=== PATIENT | female | born 1990 | race African-American/Black ===

== ENCOUNTER → 2016-12-23 | Outpatient (CLI) | payer SELFPAY ==
[2016-12-23 16:00] LABS: ABSOLUTE BASOPHILS # (AUTO) 0.1 10^3/uL (0.0-0.2); ABSOLUTE EOSINOPHILS # (AUTO) 0.1 10^3/uL (0.0-0.6); ABSOLUTE LYMPHOCYTES (AUTO) 2.4 10^3/uL (0.5-4.7); ABSOLUTE MONOCYTES (AUTO) 0.5 10^3/uL (0.1-1.4); ABSOLUTE NEUT (AUTO) 3.8 10^3/uL (1.7-8.2); BASOPHILS % (AUTO) 0.9 % (0-2); EOSINOPHILS % (AUTO) 2.1 % (0-6); HEMOGLOBIN 12.4 g/dL (12.0-15.5); HGB HCT DIFFERENCE -0.8; LYMPHOCYTES % (AUTO) 34.2 % (13-45); MEAN CORPUSCULAR HEMOGLOBIN 27.2 pg (27.0-33.4); MEAN CORPUSCULAR HGB CONC 32.8 g/dL (32.0-36.0); MEAN CORPUSCULAR VOLUME 83 fl (80-97); MONOCYTES % (AUTO) 7.2 % (3-13); RED BLOOD COUNT 4.57 10^6/uL (3.72-5.28); RED CELL DISTRIBUTION WIDTH 14.2 % (11.5-14.0); SEGMENTED NEUTROPHILS % (AUTO) 55.6 % (42-78); WHITE BLOOD COUNT 6.9 10^3/uL (4.0-10.5)
[2016-12-23 17:03] LABS: BLOOD UREA NITROGEN 8 mg/dL (7-20); CALCIUM 9.6 mg/dL (8.4-10.2); CHLORIDE 105 mmol/L (98-107); CREATININE RESULT 0.68 mg/dL (0.52-1.25); GLUCOSE 88 mg/dL (75-110); POTASSIUM 4.4 mmol/L (3.6-5.0)
[2016-12-23 17:04] LABS: ALANINE AMINOTRANSFERASE 19 U/L (9-52); ALKALINE PHOSPHATASE 60 U/L (38-126); ANION GAP 13 (5-19); ASPARTATE AMINO TRANSFERASE 17 U/L (14-36); BILIRUBIN,DIRECT 0.3 mg/dL (0.0-0.4); BILIRUBIN,TOTAL 0.5 mg/dL (0.2-1.3); CARBON DIOXIDE 22 mmol/L (22-30); SODIUM 140.3 mmol/L (137-145)
[2016-12-23 17:05] LABS: LIPASE 67.8 U/L (23-300)
== END ==
LOC: OD 10:19
PROVIDERS: ATTEND Physician Assistant
DX: R10.84 Generalized abdominal pain (principal)
CPT/HCPCS: 36415; 74022; 80053; 83690; 85025

== ENCOUNTER → 2017-01-06 | Outpatient (CLI) | payer BC ==
--- NOTE | 2017-01-06 09:20 | WOMENS IMAGING REPORT ---
EXAM DESCRIPTION: U/S ABDOMEN LIMITED COMPLETED DATE/TIME: 01/06/2017 8:59 am REASON FOR STUDY: R10.13, R11.0 R10.13 EPIGASTRIC PAIN R11.0 NAUSEA COMPARISON: Abdominal ultrasound 06/23/2011 Abdominal films 12/12/2016, 09/04/2015 TECHNIQUE: Dynamic and static grayscale images acquired of the abdomen and recorded on PACS. Additio nal selected color Doppler and spectral images recorded. LIMITATIONS: Body habitus place. FINDINGS: PANCREAS: Midline pancreas unremarkable LIVER: Normal size liver with mild increased echogenicity from fatty infiltration. No focal masses. LIVER VASCULATURE: Normal directional flow of the main portal vein and hepatic veins. GALLBLADDER: No stones. Normal wall thickness. No pericholecystic fluid. ULTRASOUND-DETECTED RAMIREZ'S SIGN: Negative. INTRAHEPATIC DUCTS AND COMMON DUCT: CBD and intrahepatic ducts normal caliber. No filling defects. INFERIOR VENA CAVA: Not well seen AORTA: Not well seen RIGHT KIDNEY: Normal size. Normal echogenicity. No solid or suspicious masses. No hydronephrosis. No calcifications. PERITONEAL AND RIGHT PLEURAL SPACE: No ascites or effusions. OTHER: No other significant findings. IMPRESSION: No gallstones gallbladder wall thickening or pericholecystic fluid. Fatty infiltration of the liver TECHNICAL DOCUMENTATION: JOB ID: [id number]- All Rights Reserved
== END ==
LOC: WI 08:01
PROVIDERS: ATTEND Internal Medicine Gastroenterology
DX: R10.13 Epigastric pain (principal); R11.0 Nausea; K76.0 Fatty (change of) liver, not elsewhere classified
CPT/HCPCS: 76705

== ENCOUNTER 2017-03-14 16:50 | Emergency (ER) | payer BC ==
[2017-03-14] MEDS ORDERED: KETOROLAC TROMETHAMINE 10 MG TABLET PO ONE (17:28)
--- NOTE | 2017-03-14 17:29 | ER Document Report ---
ED General - General Chief Complaint: Chest Pain Stated Complaint: CHEST PAIN Time Seen by Provider: 03/14/17 17:28 Mode of Arrival: Ambulatory Information source: Patient Notes: 26-year-old female presents with complaints of chest wall pain that started today. Patient notes it hurts when she touches her chest. Patient denies any shortness breath difficulty breathing denies any fevers or chills nausea vomiting or diarrhea. Patient notesalot of stress recently as well TRAVEL OUTSIDE OF THE [place] IN LAST 30 DAYS: No - HPI Onset: Last week Onset/Duration: Sudden, Persistent Quality of pain: Sharp Severity: Mild Pain Level: 1 Associated symptoms: Body/muscle aches, Chest pain Exacerbated by: Denies Relieved by: Denies Similar symptoms previously: Yes - stress related Recently seen / treated by doctor: Yes - Related Data Allergies/Adverse Reactions: diphenhydramine HCl [From Benadryl] Allergy (Severe, Verified 03/14/17 16:53) Tachycardia calcium carbonate [From Tums] Allergy (Verified 03/14/17 16:53) dexamethasone [From Decadron] Allergy (Verified 03/14/17 16:53) dexamethasone sod phosphate [From Decadron] Allergy (Verified 03/14/17 16:53) Past Medical History - Social History Smoking Status: Never Smoker Cigarette use (# per day): No Chew tobacco use (# tins/day): No Smoking Education Provided: No Family History: None, Reviewed & Not Pertinent - Past Medical History Cardiac Medical History: Reports: Hx Hypertension Renal/ Medical History: Denies: Hx Peritoneal Dialysis GI Medical History: Reports: Hx Gastroesophageal Reflux Disease Past Surgical History: Reports: Hx Tonsillectomy - Immunizations Hx Diphtheria, Pertussis, Tetanus Vaccination: Yes - 2009 Review of Systems - Review of Systems Notes: REVIEW OF SYSTEMS: CONSTITUTIONAL : Denies fever, chills, or sweats. Denies recent illness. EENT: Denies eye, ear, throat, or mouth pain or symptoms. Denies nasal or sinus congestion or discharge. Denies throat, tongue, or mouth swelling or difficulty swallowing. CARDIOVASCULAR: Denies chest pain. Denies palpitations or racing or irregular heart beat. Denies ankle edema. RESPIRATORY: Denies cough, cold, or chest congestion. Denies shortness of breath, difficulty breathing, or wheezing. GASTROINTESTINAL: Denies abdominal pain or distention. Denies nausea, vomiting , or diarrhea. Denies blood in vomitus, stools, or per rectum. Denies black, tarry stools. Denies constipation. GENITOURINARY: Denies difficulty urinating, painful urination, burning, frequency, blood in urine, or discharge. FEMALE GENITOURINARY: Denies vaginal bleeding, heavy or abnormal periods, irregular periods. Denies vaginal discharge or odor. MUSCULOSKELETAL: Admits to chest wall pain SKIN: Denies rash, lesions or sores. HEMATOLOGIC : Denies easy bruising or bleeding. LYMPHATIC: Denies swollen, enlarged glands. NEUROLOGICAL: Denies confusion or altered mental status. Denies passing out or loss of consciousness. Denies dizziness or lightheadedness. Denies headache. Denies weakness or paralysis or loss of use of either side. Denies problems with gait or speech. Denies sensory loss, numbness, or tingling. Denies seizures. PSYCHIATRIC: Admits to stress ALL OTHER SYSTEMS REVIEWED AND NEGATIVE. PHYSICAL EXAMINATION: GENERAL: Well-appearing, well-nourished and in no acute distress. HEAD: Atraumatic, normocephalic. EYES: Pupils equal round and reactive to light, extraocular movements intact, conjunctiva are normal. ENT: Nares patent, oropharynx clear without exudates. Moist mucous membranes. NECK: Normal range of motion, supple without lymphadenopathy LUNGS: Breath sounds clear to auscultation bilaterally and equal. No wheezes rales or rhonchi. HEART: Regular rate and rhythm without murmurs ABDOMEN: Soft, nontender, nondistended abdomen. No guarding, no rebound. No masses appreciated. Female : deferred Musculoskeletal: Normal range of motion, no pitting or edema. No cyanosis. Chest pain completely reproducible on palpation NEUROLOGICAL: Cranial nerves grossly intact. Normal speech, normal gait. Normal sensory, motor exams PSYCH: Normal mood, normal affect. SKIN: Warm, Dry, normal turgor, no rashes or lesions noted. Dictation was performed using [employer] voice recognition software Physical Exam - Vital signs Vitals: Temp Pulse Resp BP Pulse Ox 98.0 F 85 18 115/84 100 03/14/17 17:49 03/14/17 17:49 03/14/17 17:49 03/14/17 17:49 03/14/17 17:49 Course - Re-evaluation Re-evalutation: 03/14/17 20:45 Chest pain was exactly reproducible on palpation, patient otherwise is in no distress, EKG was normal. Patient will be discharged home with anti- inflammatories. Patient also admits to a lot of stress in her life which may attribute to her pain After performing a Medical Screening Examination, I estimate there is LOW risk for RUPTURED ESOPHAGUS, PNEUMOTHORAX, PULMONARY EMBOLISM, ACUTE CORONARY SYNDROME, OR THORACIC AORTIC DISSECTION, thus I consider the discharge disposition reasonable. I have reevaluated this patient multiple times and no significant life threatening changes are noted. The patient and I have discussed the diagnosis and risks, and we agree with discharging home with close follow-up. We also discussed returning to the Emergency Department immediately if new or worsening symptoms occur. We have discussed the symptoms which are most concerning (e.g., bloody sputum, worsening pain or shortness of breath) that necessitate immediate return. - Vital Signs Vital signs: Temp Pulse Resp BP Pulse Ox 98.0 F 85 18 115/84 100 03/14/17 17:49 03/14/17 17:49 03/14/17 17:49 03/14/17 17:49 03/14/17 17:49 - EKG Interpretation by Me EKG shows normal: Sinus rhythm, [place], Intervals, QRS Complexes - No acute abnormality Discharge - Discharge Clinical Impression: Chest wall pain, Stress Condition: Stable Disposition: HOME, SELF-CARE Instructions: Chest Wall Pain ([facility]) Additional Instructions: Follow up with your physician tomorrow for further care or return to the ED IMMEDIATELY if symptoms worsen or new concerns occur. If you cannot afford to follow up with your primary care physician a list of low cost clinics have been provided at the end of your discharge papers as well. Prescriptions: Ketorolac Tromethamine [Toradol 10 mg Tablet] 10 mg PO Q8 #30 tablet Referrals: LALO HORTON MD [Primary Care Provider] - Follow up as needed
[2017-03-14 17:50] VITALS: BP 115/84
--- NOTE | 2017-03-14 17:50 | EKG REPORT ---
SEVERITY:- OTHERWISE NORMAL ECG - SINUS TACHYCARDIA : Confirmed by: Tone Estrada 14-Mar-2017 17:50:18
== END 2017-03-14 17:50 | disposition home or self-care (01) ==
LOC: ER 16:50
DX: R07.89 Other chest pain (principal); F43.9 Reaction to severe stress, unspecified
CPT/HCPCS: 93005; 99285; 93010; J3490

== ENCOUNTER 2019-06-21 14:28 | Emergency (ER) | payer BC ==
[2019-06-21] MEDS ORDERED: ONDANSETRON HCL INJ/PF 4 MG/2 ML SDV IV ONE ×2 (14:57→17:36)
[2019-06-21] MEDS ORDERED: NORMAL SALINE 1000 ML 1,000 ML IV ONE (14:57)
[2019-06-21] MEDS ORDERED: LIDOCAINE 2% VISCOUS SOLN 20 ML UDCUP PO ONE ×2 (15:00→18:36)
[2019-06-21] MEDS ORDERED: METOCLOPRAMIDE HCL ORAL SOLN 10 MG/10 ML UDCUP PO ONE (15:00)
[2019-06-21] MEDS ORDERED: MAG HYDROX/AL HYDROX/SIMETH SUSP 30 ML UDCUP PO ONE ×2 (15:00→18:36)
--- NOTE | 2019-06-21 15:02 | ER Document Report ---
ED Medical Screen (RME) - General Chief Complaint: Abdominal Pain Stated Complaint: ABDOMINAL PAIN Time Seen by Provider: 06/21/19 14:53 Primary Care Provider: LALO HORTON MD [Primary Care Provider] - Follow up as needed Notes: Patient is a 29-year-old female with a history of acid reflux who presents the emergency department with a chief complaint of epigastric pain. Patient reports that she was sent here from [facility] urgent care to be evaluated for her gallbladder. Patient reports for the past 2 days she has had epigastric pain that sometimes radiates into the right upper quadrant and near her umbilicus. Patient reports yesterday she had multiple bouts of diarrhea but that has since improved. Patient reports nausea and one episode of vomiting. Patient reports her pain is worse when she attempts to eat. Patient reports chills but has not checked her temperature at home. Patient denies abdominal surgeries. Patient reports last menstrual cycle June 11. TRAVEL OUTSIDE OF THE [place] IN LAST 30 DAYS: No - Related Data Allergies/Adverse Reactions: diphenhydramine HCl [From Benadryl] Allergy (Severe, Verified 03/14/17 16:53) Tachycardia calcium carbonate [From Tums] Allergy (Verified 03/14/17 16:53) dexamethasone [From Decadron] Allergy (Verified 03/14/17 16:53) dexamethasone sod phosphate [From Decadron] Allergy (Verified 03/14/17 16:53) Past Medical History - Social History Frequency of alcohol use: None Drug Abuse: None - Past Medical History Cardiac Medical History: Reports: Hx Hypertension Renal/ Medical History: Denies: Hx Peritoneal Dialysis GI Medical History: Reports: Hx Gastroesophageal Reflux Disease Past Surgical History: Reports: Hx Tonsillectomy - Immunizations Hx Diphtheria, Pertussis, Tetanus Vaccination: Yes - 2009 Physical Exam - Vital signs Vitals: Temp Pulse Resp BP Pulse Ox 98.4 F 87 18 143/83 H 100 06/21/19 14:45 06/21/19 14:45 06/21/19 14:45 06/21/19 14:45 06/21/19 14:45 - Abdominal Inspection: Morbidly Obese Distension: No distension Bowel sounds: Normal Tenderness: Tender - epigatric tenderness Organomegaly: No organomegaly Course - Re-evaluation Re-evalutation: 06/21/19 15:02 I have greeted and performed a rapid initial assessment of this patient. A comprehensive ED assessment and evaluation of the patient, analysis of test results and completion of the medical decision making process will be conducted by additional ED providers. - Vital Signs Vital signs: Temp Pulse Resp BP Pulse Ox 98.4 F 87 18 143/83 H 100 06/21/19 14:45 06/21/19 14:45 06/21/19 14:45 06/21/19 14:45 06/21/19 14:45 Doctor's Discharge - Discharge Referrals: LALO HORTON MD [Primary Care Provider] - Follow up as needed
[2019-06-21 16:35] LABS: ABSOLUTE LYMPHOCYTES (AUTO) 1.6 10^3/uL (0.5-4.7); ABSOLUTE MONOCYTES (AUTO) 0.4 10^3/uL (0.1-1.4); ABSOLUTE NEUT (AUTO) 2.9 10^3/uL (1.7-8.2); BASOPHILS % (AUTO) 0.6 % (0-2); EOSINOPHILS % (AUTO) 0.4 % (0-6); HEMOGLOBIN 12.8 g/dL (12.0-15.5); LYMPHOCYTES % (AUTO) 32.3 % (13-45); MEAN CORPUSCULAR HEMOGLOBIN 27.7 pg (27.0-33.4); MEAN CORPUSCULAR HGB CONC 33.6 g/dL (32.0-36.0); MEAN CORPUSCULAR VOLUME 82 fl (80-97); MONOCYTES % (AUTO) 7.2 % (3-13); PLATELET COUNT 386 10^3/uL (150-450); RED BLOOD COUNT 4.61 10^6/uL (3.72-5.28); RED CELL DISTRIBUTION WIDTH 13.9 % (11.5-14.0); SEGMENTED NEUTROPHILS % (AUTO) 59.5 % (42-78); TOTAL CELLS COUNTED % (AUTO) 100 %; WHITE BLOOD COUNT 4.9 10^3/uL (4.0-10.5)
[2019-06-21 16:57] LABS: ALBUMIN 4.4 g/dL (3.5-5.0); ALKALINE PHOSPHATASE 63 U/L (38-126); ANION GAP 13 (5-19); ASPARTATE AMINO TRANSFERASE 21 U/L (14-36); BILIRUBIN,DIRECT 0.1 mg/dL (0.0-0.4); BILIRUBIN,TOTAL 0.5 mg/dL (0.2-1.3); BLOOD UREA NITROGEN 7 mg/dL (7-20); CALCIUM 9.4 mg/dL (8.4-10.2); CARBON DIOXIDE 23 mmol/L (22-30); CHLORIDE 102 mmol/L (98-107); GLUCOSE 77 mg/dL (75-110); TOTAL PROTEIN 7.6 g/dL (6.3-8.2)
[2019-06-21 18:22] LABS: APPEARANCE,URINE CLOUDY; BILIRUBIN,URINE NEGATIVE (NEGATIVE); GLUCOSE, URINE NEGATIVE (NEGATIVE); KETONES,URINE 20 mg/dL (NEGATIVE); LEUKOCYTE ESTERASE,URINE NEGATIVE (NEGATIVE); NITRITE,URINE NEGATIVE (NEGATIVE); PROTEIN,URINE NEGATIVE (NEGATIVE); URINE SPECIFIC GRAVITY 1.025
[2019-06-21 18:25] LABS: COLOR,URINE DARK YELLOW
[2019-06-21] MEDS ORDERED: DEXTROSE 5%-LACTATED RINGERS 1,000 ML IV ONE (18:36)
--- NOTE | 2019-06-21 18:44 | RADIOLOGY REPORT (SQ) ---
EXAM DESCRIPTION: U/S ABDOMEN LIMITED W/O DOP COMPLETED DATE/TIME: 06/21/2019 6:31 pm REASON FOR STUDY: epigastric pain/radiates into ruq COMPARISON: None. TECHNIQUE: Dynamic and static grayscale images acquired of the abdomen and recorded on PACS. Additio nal selected color Doppler and spectral images recorded. LIMITATIONS: Bowel gas. FINDINGS: PANCREAS: Not seen. LIVER: Increased echogenicity. LIVER VASCULATURE: Normal directional flow of the main portal vein and hepatic veins. GALLBLADDER: No stones. Normal wall thickness. No pericholecystic fluid. ULTRASOUND-DETECTED RAMIREZ'S SIGN: Negative. INTRAHEPATIC DUCTS AND COMMON DUCT: CBD and intrahepatic ducts normal caliber. No filling defects. INFERIOR VENA CAVA: Normal flow. AORTA: No aneurysm. The mid abdominal aorta is not well seen. RIGHT KIDNEY: Normal size, 10.8 cm. Normal echogenicity. No solid or suspicious masses. No hydroneph rosis. No calcifications. PERITONEAL AND RIGHT PLEURAL SPACE: No ascites or effusions. OTHER: No other significant findings. IMPRESSION: Fatty infiltration of the liver. TECHNICAL DOCUMENTATION: JOB ID: [id number] [employer]- All Rights Reserved Reading location - IP/workstation name: [email or web address]
--- NOTE | 2019-06-21 19:34 | ER Document Report ---
Entered by CECILIA CERVANTES SCRIBE 06/21/19 1723 Acting as scribe for:KAR SHI MD ED General - General Chief Complaint: Abdominal Pain Stated Complaint: ABDOMINAL PAIN Time Seen by Provider: 06/21/19 14:53 Primary Care Provider: LALO HORTON MD [Primary Care Provider] - Follow up as needed Notes: Patient is a 29 year old female presenting to the emergency department today complaining of upper abdominal pain. Patient states that this pain began x2 days ago and she has been having nausea, vomiting, diarrhea, and flank pain as well. She states that she vomited once and states that it was a yellow/pink color. TRAVEL OUTSIDE OF THE [place] IN LAST 30 DAYS: No - Related Data Allergies/Adverse Reactions: diphenhydramine HCl [From Benadryl] Allergy (Severe, Verified 03/14/17 16:53) Tachycardia calcium carbonate [From Tums] Allergy (Verified 03/14/17 16:53) dexamethasone [From Decadron] Allergy (Verified 03/14/17 16:53) dexamethasone sod phosphate [From Decadron] Allergy (Verified 03/14/17 16:53) Past Medical History - General Information source: Patient - Social History Smoking Status: Never Smoker Cigarette use (# per day): No Chew tobacco use (# tins/day): No Frequency of alcohol use: Rare Drug Abuse: None Occupation: [employer] Family History: None, Reviewed & Not Pertinent Patient has suicidal ideation: No Patient has homicidal ideation: No Renal/ Medical History: Denies: Hx Peritoneal Dialysis GI Medical History: Reports: Hx Gastroesophageal Reflux Disease Past Surgical History: Reports: Hx Tonsillectomy - Immunizations Hx Diphtheria, Pertussis, Tetanus Vaccination: Yes - 2009 Review of Systems - Review of Systems Constitutional: No symptoms reported EENT: No symptoms reported Cardiovascular: No symptoms reported Respiratory: No symptoms reported Gastrointestinal: See HPI, Abdominal pain, Diarrhea, Nausea, Vomiting - once yesterday Genitourinary: See HPI, Flank pain Female Genitourinary: No symptoms reported Musculoskeletal: No symptoms reported Skin: No symptoms reported Hematologic/Lymphatic: No symptoms reported Neurological/Psychological: No symptoms reported -: Yes All other systems reviewed and negative Physical Exam - Vital signs Vitals: Temp Pulse Resp BP Pulse Ox 98.4 F 87 18 143/83 H 100 06/21/19 14:45 06/21/19 14:45 06/21/19 14:45 06/21/19 14:45 06/21/19 14:45 - Notes Notes: Physical Exam: General: Alert, obese. HEENT: Normocephalic. Atraumatic. PERRL. Extraocular movements intact. Oropharynx clear. Neck: Supple. Non-tender. Respiratory: No respiratory distress. Clear and equal breath sounds bilaterally. Cardiovascular: Regular rate and rhythm. Abdominal: Epigastric tenderness to palpation. Right upper quadrant tenderness to palpation. No distension. Normal Bowel Sounds. Back: No CVA percussion tenderness. No gross abnormalities. Extremities: Moves all four extremities. Upper extremities: Normal inspection. Normal ROM. Lower extremities: Normal inspection. No edema. Normal ROM. Neurological: Normal cognition. AAOx4. Normal speech. Psychological: Normal affect. Normal Mood. Skin: Warm. Dry. Normal color. Course - Re-evaluation Re-evalutation: 06/21/19 18:35 Patient is epigastric abdominal tenderness which did not improve with the first GI cocktail. She did report several episodes of diarrhea yesterday and one episode of vomiting a large volume of liquid. Her lab work is unremarkable. Gallbladder ultrasound is unremarkable. 06/21/19 19:39 Patient feels much better after the second GI cocktail. Her pain is gone now and there is no tenderness to palpate. Nauseousness is also gone after Zofran. I suspect the patient had a viral gastroenteritis with all the diarrhea she had yesterday and the large volume vomiting caused her to have GERD type symptoms. - Vital Signs Vital signs: Temp Pulse Resp BP Pulse Ox 98.4 F 87 18 143/83 H 100 06/21/19 14:45 06/21/19 14:45 06/21/19 14:45 06/21/19 14:45 06/21/19 14:45 - Laboratory Result Diagrams: 06/21/19 16:04 06/21/19 16:04 Laboratory results interpreted by me: 06/21/19 17:48 Urine Ketones 20 H Urine Urobilinogen 4.0 H - Diagnostic Test Radiology reviewed: Image reviewed - Gallbladder ultrasound is unremarkable. Discharge - Discharge Clinical Impression: Gastroenteritis Abdominal pain Qualifiers: Abdominal location: epigastric Qualified Code(s): R10.13 - Epigastric pain Condition: Stable Disposition: HOME, SELF-CARE Additional Instructions: Gastroenteritis You most likely have gastroenteritis. This is an irritation of the stomach and intestinal tract. It's usually caused by a virus, but can also be caused by bacteria, toxins that cause food poisoning, or excessive alcohol intake. Symptoms may include fever, painful abdominal cramps, nausea, vomiting, and di arrhea. Start with small amounts (two to six ounces) of clear liquids (soft drinks, herb teas, broth, etc). Try to take fluids frequently even if you are vomiting, to prevent dehydration. When liquids are being consumed successfully, advance to small amounts of bland food (mashed potato, toast) for 6 - 12 hours. Gastroenteritis rarely requires medication. It goes away by itself. Use go od handwashing so you don't spread germs. Wash underwear in very hot water. If symptoms are severe, talk to the doctor. Call your physician if blood appears in your vomitus or stool, if vomiting lasts longer than 24 hours, if the abdominal pain worsens or becomes localized to one area, or if you develop high fever. Take medication as dispensed for nauseousness if needed. Try taking Imodium right ear if the diarrhea continues to be a problem. Drink cool clear liquids today. Get plenty of rest and sleep. Follow-up with your primary care provider if not improving. RETURN TO THE EMERGENCY ROOM IF ANY NEW OR WORSENING SYMPTOMS. Forms: Return to Work Referrals: LALO HORTON MD [Primary Care Provider] - Follow up as needed Scribe Attestation: 06/21/19 18:35 I personally performed the services described in the documentation, reviewed and edited the documentation which was dictated to the scribe in my presence, and it accurately records my words and actions. I personally performed the services described in the documentation, reviewed and edited the documentation which was dictated to the scribe in my presence, and it accurately records my words and actions.
[2019-06-21] MEDS ORDERED: ONDANSETRON ODT 4 MG TAB (6 TAB/ER DISP) PO PRN (19:41)
[2019-06-21 20:13] VITALS: BP 142/87
== END 2019-06-21 20:13 | disposition home or self-care (01) ==
LOC: ER 14:28
DX: K52.9 Noninfective gastroenteritis and colitis, unspecified (principal); R10.13 Epigastric pain; R10.816 Epigastric abdominal tenderness; R10.811 Right upper quadrant abdominal tenderness; R11.2 Nausea with vomiting, unspecified; R10.9 Unspecified abdominal pain; Z88.8 Allergy status to other drugs, medicaments and biological substances; Z87.19 Personal history of other diseases of the digestive system
CPT/HCPCS: 36415; 83690; 84703; 85025; 80053; 81001; 76705; J3490; J2405; J7121; J7030

== ENCOUNTER 2019-10-13 13:57 | Emergency (ER) | payer BC ==
[2019-10-13] MEDS ORDERED: ASPIRIN 81 MG TABLET, CHEWABLE PO ONE (14:22)
--- NOTE | 2019-10-13 14:23 | ER Document Report ---
ED Medical Screen (RME) - General Stated Complaint: CHEST PAIN Time Seen by Provider: 10/13/19 14:19 Primary Care Provider: LALO HORTON MD [Primary Care Provider] - Follow up as needed Notes: HPI: 29-year-old obese female presenting to the emergency department for evaluation of 5 days of a constant left upper chest pressure that does not change with palpation position or movement. Reports mild shortness of breath and nausea with this. Discomfort seems to radiate into the shoulder and upper arm. Patient states she has a history of gastritis but did take Pepcid AC without change or resolution of the discomfort. Patient does occasionally smoke. No history of hypertension per the patient I have greeted and performed a rapid initial assessment of this patient. A comprehensive ED assessment and evaluation of the patient, analysis of test results and completion of the medical decision making process will be conducted by additional ED providers PHYSICAL EXAMINATION: GENERAL: Well-appearing, well-nourished and in mild acute distress. HEAD: Atraumatic, normocephalic. EYES: sclera anicteric, conjunctiva are normal. ENT: Moist mucous membranes. NECK: Normal range of motion LUNGS: Normal work of breathing, clear to auscultation. No reproducible pain on palpation HEART: 2+ radial pulses bilaterally, regular rate and rhythm ABD: limited by positioning for exam in triage. EXTREMITIES: no pitting or edema. No cyanosis. NEUROLOGICAL: No focal neurological deficits. Moves all extremities spontaneously and on command. PSYCH: Normal mood, normal affect. SKIN: Warm, Dry, normal turgor, no rashes or lesions noted. TRAVEL OUTSIDE OF THE [place] IN LAST 30 DAYS: No - Related Data Allergies/Adverse Reactions: diphenhydramine HCl [From Benadryl] Allergy (Severe, Verified 10/13/19 14:18) Tachycardia calcium carbonate [From Tums] Allergy (Verified 10/13/19 14:18) dexamethasone [From Decadron] Allergy (Verified 10/13/19 14:18) dexamethasone sod phosphate [From Decadron] Allergy (Verified 10/13/19 14:18) Past Medical History - Past Medical History Cardiac Medical History: Reports: Hx Hypertension Renal/ Medical History: Denies: Hx Peritoneal Dialysis GI Medical History: Reports: Hx Gastroesophageal Reflux Disease Past Surgical History: Reports: Hx Tonsillectomy - Immunizations Hx Diphtheria, Pertussis, Tetanus Vaccination: Yes - 2009 Physical Exam - Vital signs Vitals: Temp Pulse Resp BP Pulse Ox 98.1 F 86 20 151/100 H 100 10/13/19 14:14 10/13/19 14:14 10/13/19 14:14 10/13/19 14:14 10/13/19 14:14 Course - Vital Signs Vital signs: Temp Pulse Resp BP Pulse Ox 98.1 F 86 20 151/100 H 100 10/13/19 14:14 10/13/19 14:14 10/13/19 14:14 10/13/19 14:14 10/13/19 14:14 Doctor's Discharge - Discharge Referrals: LALO HORTON MD [Primary Care Provider] - Follow up as needed
--- NOTE | 2019-10-13 14:41 | EKG REPORT ---
SEVERITY:- NORMAL ECG - SINUS RHYTHM : Confirmed by: Lanre Dove MD 13-Oct-2019 14:41:18
[2019-10-13 14:55] LABS: ABSOLUTE BASOPHILS # (AUTO) 0.1 10^3/uL (0.0-0.2); ABSOLUTE EOSINOPHILS # (AUTO) 0.1 10^3/uL (0.0-0.6); ABSOLUTE LYMPHOCYTES (AUTO) 2.2 10^3/uL (0.5-4.7); ABSOLUTE MONOCYTES (AUTO) 0.5 10^3/uL (0.1-1.4); ABSOLUTE NEUT (AUTO) 4.1 10^3/uL (1.7-8.2); BASOPHILS % (AUTO) 1.1 % (0-2); EOSINOPHILS % (AUTO) 1.7 % (0-6); HEMOGLOBIN 12.8 g/dL (12.0-15.5); LYMPHOCYTES % (AUTO) 31.5 % (13-45); MEAN CORPUSCULAR HEMOGLOBIN 27.8 pg (27.0-33.4); MEAN CORPUSCULAR HGB CONC 33.7 g/dL (32.0-36.0); MEAN CORPUSCULAR VOLUME 82 fl (80-97); MONOCYTES % (AUTO) 6.7 % (3-13); PLATELET COUNT 438 10^3/uL (150-450); RED BLOOD COUNT 4.61 10^6/uL (3.72-5.28); RED CELL DISTRIBUTION WIDTH 14.2 % (11.5-14.0); TOTAL CELLS COUNTED % (AUTO) 100 %; WHITE BLOOD COUNT 6.9 10^3/uL (4.0-10.5)
[2019-10-13 15:10] LABS: INTERNATIONAL RATION (INR) 0.96; PROTHROMBIN TIME 12.8 SEC (11.4-15.4)
[2019-10-13 15:12] LABS: ALBUMIN 4.5 g/dL (3.5-5.0); ALKALINE PHOSPHATASE 53 U/L (38-126); ANION GAP 7 (5-19); ASPARTATE AMINO TRANSFERASE 19 U/L (14-36); BILIRUBIN,TOTAL 0.4 mg/dL (0.2-1.3); BLOOD UREA NITROGEN 11 mg/dL (7-20); CALCIUM 9.7 mg/dL (8.4-10.2); CARBON DIOXIDE 25 mmol/L (22-30); CHLORIDE 107 mmol/L (98-107); GLUCOSE 112 mg/dL (75-110); POTASSIUM 4.4 mmol/L (3.6-5.0); TOTAL PROTEIN 7.9 g/dL (6.3-8.2)
--- NOTE | 2019-10-13 15:17 | RADIOLOGY REPORT (SQ) ---
EXAM DESCRIPTION: CHEST 2 VIEWS COMPLETED DATE/TIME: 10/13/2019 2:54 pm REASON FOR STUDY: chest pain COMPARISON: None. EXAM PARAMETERS: NUMBER OF VIEWS: two views TECHNIQUE: Digital Frontal and Lateral radiographic views of the chest acquired. RADIATION DOSE: NA LIMITATIONS: none FINDINGS: LUNGS AND PLEURA: No opacities, masses or pneumothorax. No pleural effusion. MEDIASTINUM AND HILAR STRUCTURES: No masses or contour abnormalities. HEART AND VASCULAR STRUCTURES: Heart normal size. No evidence for failure. BONES: No acute findings. HARDWARE: None in the chest. OTHER: No other significant finding. IMPRESSION: NO ACUTE RADIOGRAPHIC FINDING IN THE CHEST. TECHNICAL DOCUMENTATION: JOB ID: [id number] 2010 [employer]- All Rights Reserved Reading location - IP/workstation name: [email or web address]
--- NOTE | 2019-10-13 17:05 | ER Document Report ---
ED General - General Chief Complaint: Chest Pain Stated Complaint: CHEST PAIN Time Seen by Provider: 10/13/19 14:19 Primary Care Provider: LALO HORTON MD [Primary Care Provider] - Follow up as needed TRAVEL OUTSIDE OF THE [place] IN LAST 30 DAYS: No - HPI Notes: Ms. Balderas is a 29-year-old female with a chief complaint of persistent nonradiating, nonpleuritic pain left upper anterior chest area over the past 1 week. She uses Tylenol with intermittent relief but pain seems to come back. She also notes she has had some occasional palpitations. Additional history is obtained from patient's mother who accompanies her. It is reported the patient has been very stressed and not sleeping well related to recent of a relative after a lengthy illness with terminal cancer. Patient was involved as a caregiver. Denies any unaccustomed physical activity. Has occasional reflux and takes Pepcid AC for this. She takes some allergy medications as needed. She is reall y not on any other long-term medications. Patient is not diabetic. She is somewhat overweight. She has no history of diabetes, hypertension, hyperlipidemia, CAD or thromboembolic disease. She is a non-smoker. She is not on any hormonal medication. Last menses 2 weeks ago described as normal. HEART Score: HISTORY 0 ECG 0 AGE 0 RISK FACTORS 1 TROPONIN 0 TOTAL: 1 If HEART score is = 3 AND both tronponin measurments are normal, the 30 day risk of a major adverse cardiac event (all-cause mortality, myocardia infarction or need for coronary revscularization) is < 1% (Sensitivity 100%, NPV 100%). - Related Data Allergies/Adverse Reactions: diphenhydramine HCl [From Benadryl] Allergy (Severe, Verified 10/13/19 14:18) Tachycardia calcium carbonate [From Tums] Allergy (Verified 10/13/19 14:18) dexamethasone [From Decadron] Allergy (Verified 10/13/19 14:18) dexamethasone sod phosphate [From Decadron] Allergy (Verified 10/13/19 14:18) Past Medical History - General Information source: Patient, Relative - Social History Smoking Status: Never Smoker Chew tobacco use (# tins/day): No Frequency of alcohol use: None Drug Abuse: None Family History: None, Reviewed & Not Pertinent Patient has suicidal ideation: No Patient has homicidal ideation: No Renal/ Medical History: Denies: Hx Peritoneal Dialysis GI Medical History: Reports: Hx Gastroesophageal Reflux Disease Past Surgical History: Reports: Hx Tonsillectomy - Immunizations Hx Diphtheria, Pertussis, Tetanus Vaccination: Yes - 2009 Physical Exam - Vital signs Vitals: Temp Pulse Resp BP Pulse Ox 98.1 F 86 20 151/100 H 100 10/13/19 14:14 10/13/19 14:14 10/13/19 14:14 10/13/19 14:14 10/13/19 14:14 - Notes Notes: GENERAL: Somewhat obese female appearing approximately stated age who looks anxious. SKIN: Good turgor no rashes. HEAD: Normocephalic atraumatic. EYES: PERRLA. EOMI. Conjunctivae and sclerae clear. EARS: CANALS AND TMS CLEAR. NOSE: CLEAR. MOUTH: Moist mucosa. Good dentition. No stridor or edema. No drooling. NECK: Supple. No masses or thyromegaly. No adenopathy. Carotids 2+ without bruits. No JVD. BACK: Symmetrical without tenderness. CHEST: Patient is exquisitely tender left upper anterior chest area with EXACT reproduction of her pain. Respirations unlabored. Breath sounds clear and sym metrical. HEART: Regular rhythm. No murmur gallop or rub. ABDOMEN: Obese. Soft nontender without masses, organomegaly or rebound. Bowel sounds normally active. No bruits. GENITALIA: Deferred. EXTREMITIES: No edema. No calf tenderness. Cap refill less than 1.5 seconds. Dorsalis pedis and posterior tibial pulses 3+ and symmetrical. NEUROLOGICAL: GCS 15. Alert and oriented x3. Normal gait. Fluent speech. Cranial nerves II through XII intact. Sensorimotor and cerebellar normal. Nor mal tone. PSYCHIATRIC: Anxious affect. Course - Re-evaluation Re-evalutation: 10/13/19 17:07 This young lady has a heart score of 1. She is under substantial emotional stress. Her pain seems to be completely reproducible with palpation of the area of her discomfort. Her chest x-ray troponin and EKG are normal. I talked with patient and her mother at length Er at length to provide general reassurance. Because of her history of GERD I am reluctant to put her on an NSAID. I am going to suggest she continue Tylenol and I will also prescribe some Flexeril to take at bedtime. She will follow-up with her primary care provider Dr. Horton this week and return here as needed for any new or worsening symptoms. - Vital Signs Vital signs: Temp Pulse Resp BP Pulse Ox 98.1 F 86 17 122/86 H 100 10/13/19 14:14 10/13/19 14:14 10/13/19 16:02 10/13/19 16:02 10/13/19 16:02 - Laboratory Result Diagrams: 10/13/19 14:45 10/13/19 14:45 Laboratory results interpreted by me: 10/13/19 10/13/19 14:45 14:45 RDW 14.2 H Glucose 112 H - Diagnostic Test Radiology reviewed: Reports reviewed - Normal chest x-ray per radiologist - EKG Interpretation by Me Additional EKG results interpreted by me: 10/13/19 17:07 Twelve-lead EKG from 1403 hrs. today is reviewed contemporaneously by me demonstrating normal sinus rhythm with rate of 82 and a normal QRS axis of 29 degrees. Intervals are normal. There are no acute ST/T wave changes present. Discharge - Discharge Clinical Impression: Chest wall pain Condition: Stable Disposition: ADMITTED INPATIENT Instructions: Chest Wall Pain ([facility]) Prescriptions: Cyclobenzaprine HCl [Flexeril 10 mg Tablet] 10 mg PO QHS PRN #15 tablet PRN Reason: Referrals: LALO HORTON MD [Primary Care Provider] - Follow up as needed
[2019-10-13 17:14] VITALS: BP 131/77
== END 2019-10-13 17:14 | disposition home or self-care (01) ==
LOC: ER 13:57
DX: R07.89 Other chest pain (principal); I10 Essential (primary) hypertension
CPT/HCPCS: 36415; 71046; 80053; 84484; 85025; 85610; 93005; 93010; 99284

== ENCOUNTER 2019-11-10 15:27 | Emergency (ER) | payer BC ==
[2019-11-10] MEDS ORDERED: IBUPROFEN 800 MG TABLET PO ONE (15:49)
--- NOTE | 2019-11-10 15:50 | ER Document Report ---
ED Medical Screen (RME) - General Chief Complaint: Abdominal Pain Stated Complaint: LOWER ABDOMINAL PAIN Time Seen by Provider: 11/10/19 15:44 Primary Care Provider: LALO HORTON MD [Primary Care Provider] - Follow up as needed Mode of Arrival: Ambulatory Information source: Patient Notes: 29-year-old female presents with complaints of lower abdominal pain vaginal pain and rectal pain since yesterday. Denies fever vomiting diarrhea. Reports she feels a lot of pressure when she has a bowel movement or voids. Reports she is not sexually active. Denies vaginal discharge. Denies pain with void. I have greeted and performed a rapid initial assessment of this patient. A comprehensive ED assessment and evaluation of the patient, analysis of test results and completion of the medical decision making process will be conducted by additional ED providers. TRAVEL OUTSIDE OF THE [place] IN LAST 30 DAYS: No - Related Data Allergies/Adverse Reactions: diphenhydramine HCl [From Benadryl] Allergy (Severe, Verified 11/10/19 15:42) Tachycardia calcium carbonate [From Tums] Allergy (Verified 11/10/19 15:42) dexamethasone [From Decadron] Allergy (Verified 11/10/19 15:42) dexamethasone sod phosphate [From Decadron] Allergy (Verified 11/10/19 15:42) Past Medical History - Social History Chew tobacco use (# tins/day): No Frequency of alcohol use: Occasional Drug Abuse: None - Past Medical History Cardiac Medical History: Reports: Hx Hypertension Renal/ Medical History: Denies: Hx Peritoneal Dialysis GI Medical History: Reports: Hx Gastroesophageal Reflux Disease Past Surgical History: Reports: Hx Tonsillectomy - Immunizations Hx Diphtheria, Pertussis, Tetanus Vaccination: Yes - 2009 Physical Exam - Vital signs Vitals: Temp Pulse Resp BP Pulse Ox 98.3 F 101 H 20 145/86 H 98 11/10/19 15:37 11/10/19 15:37 11/10/19 15:37 11/10/19 15:37 11/10/19 15:37 Course - Vital Signs Vital signs: Temp Pulse Resp BP Pulse Ox 98.3 F 101 H 20 145/86 H 98 11/10/19 15:37 11/10/19 15:37 11/10/19 15:37 11/10/19 15:37 11/10/19 15:37 Doctor's Discharge - Discharge Referrals: LALO HORTON MD [Primary Care Provider] - Follow up as needed
[2019-11-10 16:36] LABS: APPEARANCE,URINE SLIGHTLY-CLOUDY; BILIRUBIN,URINE NEGATIVE (NEGATIVE); COLOR,URINE YELLOW; GLUCOSE, URINE NEGATIVE (NEGATIVE); KETONES,URINE NEGATIVE (NEGATIVE); PROTEIN,URINE NEGATIVE (NEGATIVE); URINE SPECIFIC GRAVITY 1.028; UROBILINOGEN,URINE NEGATIVE mg/dL (<2.0)
--- NOTE | 2019-11-10 17:16 | RADIOLOGY REPORT (SQ) ---
EXAM DESCRIPTION: U/S NON OB PEL TV W/DOPPLER IMAGES COMPLETED DATE/TIME: 11/10/2019 4:36 pm REASON FOR STUDY: LOW ABD PAIN, VAG RECTAL PAIN, HX O CYST COMPARISON: None. TECHNIQUE: Dynamic and static grayscale images acquired of the pelvis via transvaginal approach and recorded on PACS. Additional selected color Doppler and spectral images recorded. LIMITATIONS: None. FINDINGS: UTERUS: Multiple fibroids. Largest is 2.3 cm. ENDOMETRIAL STRIPE: No focal or generalized thickening. No masses. CERVIX: No nabothian cysts. RIGHT OVARY AND DOPPLER: Normal size. No worrisome masses. Normal arterial vascular flow without evid ence for torsion. LEFT OVARY AND DOPPLER: Normal size. No worrisome masses. Normal arterial vascular flow without evide nce for torsion. Complicated cyst. 2.1 cm and 1.7 cm. FREE FLUID: [id number] fluid adnexal and cul-de-sac. OTHER: No other significant finding. MEASUREMENTS: UTERUS: 8.5 cm ENDOMETRIAL STRIPE: 13.9 mm RIGHT OVARY: 3.6 cm LEFT OVARY: 3.7 cm IMPRESSION: Fibroid uterus. Hemorrhagic cysts left ovary. COMMENT: Followup of asymptomatic benign ovarian cysts detected by ultrasound in PREMENOPAUSAL noni ents Simple cyst: * Hemorrhagic cyst *? 5 cm: no followup *> 5 and ? 7 cm: yearly followup ultrasound *> 7 cm: further imaging (MRI) or surgical * Note: If cyst issymptomatic or otherwise concerning, other followup may be warranted. Based on recommendations of the Society for Radiologists in Ultrasound Consensus Conference Stateme nt 2009 on management of asymptomatic ovarian and other adnexal cysts imaged at ultrasound. TECHNICAL DOCUMENTATION: JOB ID: [id number] 2010 [employer]- All Rights Reserved Rev-12/23 Reading location - IP/workstation name: [email or web address]
[2019-11-10 17:36] LABS: ABSOLUTE BASOPHILS # (AUTO) 0.1 10^3/uL (0.0-0.2); ABSOLUTE EOSINOPHILS # (AUTO) 0.1 10^3/uL (0.0-0.6); ABSOLUTE LYMPHOCYTES (AUTO) 2.1 10^3/uL (0.5-4.7); ABSOLUTE MONOCYTES (AUTO) 0.5 10^3/uL (0.1-1.4); ABSOLUTE NEUT (AUTO) 5.9 10^3/uL (1.7-8.2); BASOPHILS % (AUTO) 0.8 % (0-2); EOSINOPHILS % (AUTO) 1.6 % (0-6); HEMATOCRIT 38.1 % (36.0-47.0); HEMOGLOBIN 12.8 g/dL (12.0-15.5); LYMPHOCYTES % (AUTO) 24.4 % (13-45); MEAN CORPUSCULAR HEMOGLOBIN 27.6 pg (27.0-33.4); MEAN CORPUSCULAR HGB CONC 33.6 g/dL (32.0-36.0); MEAN CORPUSCULAR VOLUME 82 fl (80-97); MONOCYTES % (AUTO) 5.5 % (3-13); PLATELET COUNT 427 10^3/uL (150-450); RED BLOOD COUNT 4.63 10^6/uL (3.72-5.28); RED CELL DISTRIBUTION WIDTH 14.1 % (11.5-14.0); SEGMENTED NEUTROPHILS % (AUTO) 67.7 % (42-78); TOTAL CELLS COUNTED % (AUTO) 100 %; WHITE BLOOD COUNT 8.7 10^3/uL (4.0-10.5)
[2019-11-10 17:54] LABS: ALBUMIN 4.4 g/dL (3.5-5.0); ALKALINE PHOSPHATASE 64 U/L (38-126); ANION GAP 7 (5-19); ASPARTATE AMINO TRANSFERASE 20 U/L (14-36); BILIRUBIN,DIRECT 0.2 mg/dL (0.0-0.4); BILIRUBIN,TOTAL 0.3 mg/dL (0.2-1.3); BLOOD UREA NITROGEN 14 mg/dL (7-20); CALCIUM 9.9 mg/dL (8.4-10.2); CARBON DIOXIDE 27 mmol/L (22-30); CHLORIDE 103 mmol/L (98-107); GLUCOSE 93 mg/dL (75-110); POTASSIUM 4.2 mmol/L (3.6-5.0); TOTAL PROTEIN 8.1 g/dL (6.3-8.2)
--- NOTE | 2019-11-10 19:27 | ER Document Report ---
Entered by MATEO DIAMOND SCRIBE 11/10/19 1828 Acting as scribe for:ZAINAB MARTE MD ED General - General Chief Complaint: Abdominal Pain Stated Complaint: LOWER ABDOMINAL PAIN Time Seen by Provider: 11/10/19 15:44 Primary Care Provider: LALO HORTON MD [Primary Care Provider] - Follow up as needed Mode of Arrival: Ambulatory Information source: Patient Notes: This 29-year-old female presents to the emergency department complaining of lower abdominal pain that began last night. Patient explains that yesterday she felt "vaginal and anal cramping" and thought it was the start of her menstrual cycle. Patient said that this was an unusual feeling before her menstrual cycle. Patient stated that this morning she was not able to get out of bed due to the pain. Patient said that when she tried to use the bathroom, she felt a pressure and had to "push the urine out". Patient reports urine malodor and dysuria. Patient denies vaginal discharge, chills, fever, vomiting and diarrhea. TRAVEL OUTSIDE OF THE [place] IN LAST 30 DAYS: No - Related Data Allergies/Adverse Reactions: diphenhydramine HCl [From Benadryl] Allergy (Severe, Verified 11/10/19 15:42) Tachycardia calcium carbonate [From Tums] Allergy (Verified 11/10/19 15:42) dexamethasone [From Decadron] Allergy (Verified 11/10/19 15:42) dexamethasone sod phosphate [From Decadron] Allergy (Verified 11/10/19 15:42) Past Medical History - General Information source: Patient - Social History Smoking Status: Never Smoker Cigarette use (# per day): No Chew tobacco use (# tins/day): No Frequency of alcohol use: Occasional Drug Abuse: None Lives with: Parents - Mom Family History: None, Reviewed & Not Pertinent Patient has suicidal ideation: No Patient has homicidal ideation: No - Past Medical History Cardiac Medical History: Reports: Hx Hypertension GI Medical History: Reports: Hx Gastroesophageal Reflux Disease Past Surgical History: Reports: Hx Tonsillectomy - Immunizations Hx Diphtheria, Pertussis, Tetanus Vaccination: Yes - 2009 Review of Systems - Review of Systems Constitutional: See HPI. denies: Chills, Fever EENT: No symptoms reported Cardiovascular: No symptoms reported Respiratory: No symptoms reported Gastrointestinal: See HPI, Abdominal pain. denies: Diarrhea, Vomiting Genitourinary: See HPI, Dysuria Female Genitourinary: See HPI, Vaginal odor. denies: Vaginal discharge, Vaginal bleeding Musculoskeletal: No symptoms reported Skin: No symptoms reported Hematologic/Lymphatic: No symptoms reported Neurological/Psychological: No symptoms reported -: Yes All other systems reviewed and negative Physical Exam - Vital signs Vitals: Temp Pulse Resp BP Pulse Ox 98.3 F 101 H 20 145/86 H 98 11/10/19 15:37 11/10/19 15:37 11/10/19 15:37 11/10/19 15:37 11/10/19 15:37 - Notes Notes: Physical Exam: General: Alert, appears well. HEENT: Normocephalic. Atraumatic. PERRL. Extraocular movements intact. Oropharynx clear. Neck: Supple. Non-tender. Respiratory: No respiratory distress. Clear and equal breath sounds bilaterally. Cardiovascular: Regular rate and rhythm. Abdominal: Obese. Suprapubic tenderness to palpation. No distension. Normal Bowel Sounds. Back: No gross abnormalities. Extremities: Moves all four extremities. Upper extremities: Normal inspection. Normal ROM. Lower extremities: Normal inspection. No edema. Normal ROM. Neurological: Normal cognition. AAOx4. Normal speech. Psychological: Normal affect. Normal Mood. Skin: Warm. Dry. Normal color. Course - Re-evaluation Re-evalutation: 11/10/19 19:23 Patient resting comfortably not showing any signs of distress at this time states the pain is waxing and waning not increasing at all. - Vital Signs Vital signs: Temp Pulse Resp BP Pulse Ox 98.3 F 101 H 20 145/86 H 98 11/10/19 15:37 11/10/19 15:37 11/10/19 15:37 11/10/19 15:37 11/10/19 15:37 - Laboratory Result Diagrams: 11/10/19 17:20 11/10/19 17:20 Laboratory results interpreted by me: 11/10/19 11/10/19 17:20 17:20 RDW 14.1 H Sodium 136.7 L 11/10/19 19:24 Laboratory results within normal limits. - Diagnostic Test Radiology reviewed: Image reviewed, Reports reviewed Radiology results interpreted by me: 11/10/19 19:24 Pelvic ultrasound disclosed multiple uterine fibroids. Also noted a hemorrhagic cyst on the left ovary. No other complications noted. Discharge - Discharge Clinical Impression: Ruptured cyst of left ovary, Uterine fibroid Condition: Stable Disposition: HOME, SELF-CARE Prescriptions: Ibuprofen [Motrin 800 mg Tablet] 800 mg PO Q8H PRN #15 tab PRN Reason: pain Hydrocodone/Acetaminophen [[place] 10-325 mg Tablet] 1 tab PO TID PRN #5 tablet PRN Reason: prn severe pain Referrals: LALO HORTON MD [Primary Care Provider] - Follow up as needed I personally performed the services described in the documentation, reviewed and edited the documentation which was dictated to the scribe in my presence, and it accurately records my words and actions.
[2019-11-10 19:42] VITALS: BP 129/86
== END 2019-11-10 19:43 | disposition home or self-care (01) ==
LOC: ER 15:27
DX: D25.9 Leiomyoma of uterus, unspecified (principal); N83.202 Unspecified ovarian cyst, left side; R30.0 Dysuria; I10 Essential (primary) hypertension; Z88.8 Allergy status to other drugs, medicaments and biological substances
CPT/HCPCS: 36415; 76830; 80053; 81001; 81025; 85025; 93976; 99284

== ENCOUNTER 2020-06-25 17:38 | Emergency (ER) | payer BC ==
[2020-06-25] MEDS ORDERED: FAMOTIDINE 20 MG TABLET PO ONE (19:37)
[2020-06-25] MEDS ORDERED: PREDNISONE 20 MG TABLET PO ONE (19:37)
--- NOTE | 2020-06-25 20:47 | ER Document Report ---
HPI - HPI Time Seen by Provider: 06/25/20 19:26 Pain Level: 0 Notes: 30-year-old female patient presenting with possible allergic reaction. Standard and she recently got a puppy. She reports having generalized itching. She denies any difficulty swallowing. She is allergic to Benadryl. She had an adverse reaction previously to Decadron, she describes this as feeling extreme anxiety after it was given IV. She denies any other symptoms. - ROS Systems Reviewed and Negative: Yes All other systems reviewed and negative - REPRODUCTIVE LMP: now Reproductive: DENIES: : Past Medical History - General Information source: Patient - Social History Smoking Status: Never Smoker Chew tobacco use (# tins/day): No Frequency of alcohol use: Rare Drug Abuse: None Family History: None, Reviewed & Not Pertinent - Past Medical History Cardiac Medical History: Reports: Hx Hypertension Renal/ Medical History: Denies: Hx Peritoneal Dialysis GI Medical History: Reports: Hx Gastroesophageal Reflux Disease Past Surgical History: Reports: Hx Tonsillectomy - Immunizations Hx Diphtheria, Pertussis, Tetanus Vaccination: Yes - 2009 Vertical Provider Document - CONSTITUTIONAL Notes: PHYSICAL EXAMINATION: GENERAL: Well-appearing, well-nourished and in no acute distress. HEAD: Atraumatic, normocephalic. EYES: Pupils equal round extraocular movements intact, conjunctiva are normal. ENT: Nares patent, oropharynx clear, no exudates, no tonsillar swelling, patient swallowing without difficulty. NECK: Normal range of motion LUNGS: No respiratory distress Musculoskeletal: Normal range of motion NEUROLOGICAL: Normal speech, normal gait. PSYCH: Normal mood, normal affect. SKIN: No hives noted. - INFECTION CONTROL TRAVEL OUTSIDE OF THE [place] IN LAST 30 DAYS: No Course - Re-evaluation Re-evalutation: Patient given a dose of Pepcid and Benadryl here in the emergency department. She does report. She will be discharged home at this time. Strict ED precautions were discussed. - Vital Signs Vital signs: Temp Pulse Resp BP Pulse Ox 98.1 F 113 H 20 161/101 H 84 L 06/25/20 17:44 06/25/20 17:44 06/25/20 17:44 06/25/20 17:44 06/25/20 17:44 Discharge - Discharge Clinical Impression: Allergic reaction Qualifiers: Encounter type: initial encounter Qualified Code(s): T78.40XA - Allergy, unspecified, initial encounter Condition: Stable Disposition: HOME, SELF-CARE Additional Instructions: Acute Allergic Reaction Your symptoms are due to an allergic reaction. Allergy can cause hives, swelling of the hands, feet, and face, hoarseness, and difficulty swallowing or breathing. It may be due to exposure to medication, animal dander, foods, infection, or insect bites. Medication is a common cause, even when prior use of this same medication caused no problems. Acute treatment may include adrenalin and antihistamines. Usually, the specific allergic agent can't be identified unless repeated episodes occur. Home treatment includes the following: (1) Stop any suspicious medications. This will be discussed with you. (2) Oral antihistamines for the next four to five days. (3) You may also use cimetidine (Tagamet), or famotidine (Pepcid). (4) Avoid aspirin until the hives completely disappear. (5) Avoid hot baths or showers until the hives are completely gone. Call the doctor if faintness, difficulty swallowing, tightness in the chest, or wheezing occurs. Prescriptions: Prednisone [Deltasone 20 mg Tablet] 3 tab PO DAILY 5 Days #15 tablet Famotidine [Pepcid 20 mg Tablet] 40 mg PO BID #20 tablet Referrals: LALO HORTON MD [Primary Care Provider] - Follow up as needed
[2020-06-25 21:00] VITALS: BP 158/90
== END 2020-06-25 20:55 | disposition home or self-care (01) ==
LOC: ER 17:38
DX: T78.40XA Allergy, unspecified, initial encounter (principal); L29.9 Pruritus, unspecified; I10 Essential (primary) hypertension
CPT/HCPCS: 99283; J7512